=== PATIENT | male | born 2000 | race Caucasian/White ===

== ENCOUNTER 2018-12-20 09:39 | Emergency (ER) | payer MEDICAID, OTHER ==
[2018-12-20] MEDS ORDERED: TORAdol 30 mg Injection IM ONE (09:58)
[2018-12-20] MEDS ORDERED: Adacel Vial IM ONE ×2 (10:03)
[2018-12-20] MEDS ORDERED: TORAdol 30 mg Injection ONE (10:03)
--- NOTE | 2018-12-20 10:03 | ERPHSYRPT ---
- History of Present Illness Time Seen by Provider: 12/20/18 09:54 Source: patient Exam Limitations: no limitations Physician History: 18-year-old white male arrives with complaint of pain and swelling right hand since punching a garage door just prior to arrival. Patient states he became angry and punched a garage door . Past medical history includes migraines Past surgical history is negative. Social history positive marijuana Occurred: just prior to arrival Method of Injury: direct blow (punched a garage door) Severity of Pain-Max: moderate Severity of Pain-Current: moderate Extremities Pain Location: hand: right Modifying Factors: Improves With: nothing Associated Symptoms: none Allergies/Adverse Reactions: No Known Drug Allergies Allergy (Verified 03/25/16 03:04) Hx Tetanus, Diphtheria Vaccination/Date Given: No Hx Influenza Vaccination/Date Given: No Hx Pneumococcal Vaccination/Date Given: No - Review of Systems Constitutional: No Fever, No Chills Eyes: No Symptoms Ears, Nose, & Throat: No Symptoms Respiratory: No Cough, No Dyspnea Cardiac: No Chest Pain, No Edema, No Syncope Abdominal/Gastrointestinal: No Abdominal Pain, No Nausea, No Vomiting, No Diarrhea Genitourinary Symptoms: No Dysuria Musculoskeletal: Other (ppain and swelling right hand) Skin: No Rash Neurological: No Dizziness, No Focal Weakness, No Sensory Changes Psychological: No Symptoms Endocrine: No Symptoms - Past Medical History Pertinent Past Medical History: Yes Neurological History: Migraines ENT History: No Pertinent History Cardiac History: No Pertinent History Respiratory History: No Pertinent History Endocrine Medical History: No Pertinent History Musculoskeletal History: No Pertinent History GI Medical History: No Pertinent History History: No Pertinent History Psycho-Social History: Depression - Past Surgical History Past Surgical History: No Neuro Surgical History: No Pertinent History Cardiac: No Pertinent History Respiratory: No Pertinent History Gastrointestinal: No Pertinent History Genitourinary: No Pertinent History Musculoskeletal: No Pertinent History Male Surgical History: No Pertinent History - Social History Smoking Status: Current every day smoker How long have you smoked: 4 yrs Exposure to second hand smoke: Yes Drug Use: marijuana, methamphetamines Patient Lives Alone: No - Nursing Vital Signs Nursing Vital Signs: Initial Vital Signs Temperature 98 F 12/20/18 09:39 Pulse Rate 54 L 12/20/18 09:39 Respiratory Rate 18 12/20/18 09:39 Blood Pressure 130/74 12/20/18 09:39 O2 Sat by Pulse Oximetry 99 12/20/18 09:39 Pain Scale Pain Intensity 9 - Physical Exam General Appearance: mild distress, alert Eyes, Ears, Nose, Throat Exam: moist mucous membranes Neck Exam: non-tender, supple Cardiovascular/Respiratory Exam: chest non-tender, normal breath sounds, regular rate/rhythm, no respiratory distress Abdominal Exam: non-tender, No guarding Back Exam: normal inspection, No vertebral tenderness Shoulder Exam: normal inspection, non-tender, no evidence of injury, normal ROM Elbow/Forearm Exam: normal inspection, non-tender, no evidence of injury, normal ROM Wrist Exam: normal inspection, non-tender, no evidence of injury, normal ROM Hand Exam: normal ROM, No normal inspection (right hand with moderate edema and tenderness with palpation overlying dorsal fourth and fifth metacarpal), No non- tender, No no evidence of injury Neuro/Tendon Exam: normal sensation, normal motor functions Mental Status Exam: alert, oriented x 3, cooperative Skin Exam: normal color, warm, dry SpO2 Interpretation: normal (99%) - Course Nursing assessment & vital signs reviewed: Yes - Radiology Exams Right Hand X-ray Interpretation: Discussed w/ radiologist (x-ray right hand: Mildly displaced and angulated fractures iinvolving the shaft of the fourth and fifth metacarpals with soft tissue swelling. No other bony, articular, or soft tissue abnormalities.) Ordered Tests: Active Orders 24 hr Category Date Time Status Splint STAT Care 12/20/18 10:26 Active HAND (MINIMUM 3 VIEWS) Stat Exams 12/20/18 09:58 Taken Medication Summary Discontinued Medications Generic Name Dose Route Start Last Admin Trade Name Farzana PRN Reason Stop Dose Admin Diphtheria/Tetanus/Acell Pertussis 0.5 ml 12/20/18 10:03 12/20/18 10:11 Adacel Vial IM 12/20/18 10:04 0.5 ml .ONCE ONE Administration Diphtheria/Tetanus/Acell Pertussis Confirm 12/20/18 10:03 Adacel Vial Administered 12/20/18 10:04 Dose 0.5 ml IM .STK-MED ONE Ketorolac Tromethamine 60 mg 12/20/18 09:58 12/20/18 10:10 Toradol 30 Mg Injection IM 12/20/18 09:59 60 mg STAT ONE Administration Ketorolac Tromethamine Confirm 12/20/18 10:03 Toradol 30 Mg Injection Administered 12/20/18 10:04 Dose 60 mg .ROUTE .STK-MED ONE - Progress Progress: improved Progress Note: 12/20/18 10:33 Patient was displaced and angulated fractures involving the right fourth and fifth metacarpals. Patient with large overlying hematoma on the right dorsal hand he states that he apparently manipulated just prior to arrival. He does have good capillary refill to the right fingers sensation intact to the right fingers there is decreased range of motion right fingers secondary to pain. I've ordered an aluminum splint which replicates Carrillo-Leonid splint on the right hand. Contacted [facility] call and discuss the patient's case with Dr. Goetz, she has accepted the patient for transfer. Patient was given Toradol 60 mg IM, DTaP injection, he was given an ice bag placed to the area. Patient will transport himself to [facility]. . - Departure Departure Disposition: Transfer ([facility]) Clinical Impression: Metacarpal bone fracture Qualifiers: Encounter type: initial encounter Metacarpal bone: fourth Fracture type: closed Metacarpal location: shaft Fracture alignment: displaced Laterality: right Qualified Code(s): S62.324A - Displaced fracture of shaft of fourth metacarpal bone, right hand, initial encounter for closed fracture Contusion of right hand Qualifiers: Encounter type: initial encounter Qualified Code(s): S60.221A - Contusion of right hand, initial encounter Traumatic hematoma of right hand Qualifiers: Encounter type: initial encounter Qualified Code(s): S60.221A - Contusion of right hand, initial encounter Condition: Fair Critical Care Time: No Instructions: Hand Fracture (DC) Additional Instructions: Proceed directly to [facility] emergency room. Do not eat anything. Cold packs and elevate right hand.
--- NOTE | 2018-12-20 10:39 | XRAY ---
Indication: Pain following punching injury. Comparison: None 3 portable views of the right hand demonstrates mildly displaced and angulated fractures involving the shafts of the 4th/5th metacarpals with soft tissue swelling. No other bony, articular, or soft tissue abnormalities.
[2018-12-20 11:05] VITALS: BP 114/78; PULSE 99; O2SAT 100
== END 2018-12-20 11:13 | disposition home or self-care (01) ==
LOC: ED 09:39
DX: S62.324A Displaced fracture of shaft of fourth metacarpal bone, right hand, initial encounter for closed fracture (principal); S60.221A Contusion of right hand, initial encounter; W22.01XA Walked into wall, initial encounter
CPT/HCPCS: 73130; 90471; 90715; 96372; 99284; A4570; J1885

== ENCOUNTER 2024-07-29 09:11 | Emergency (ER) | payer OTHER ==
--- NOTE | 2024-07-29 09:15 | ERPHSYRPT ---
- History of Present Illness Time Seen by Provider: 07/29/24 09:15 Source: patient Exam Limitations: no limitations Physician History: This is a 24-year-old white male patient who arrives with right eye pain by private vehicle accompanied by family member. Patient was cleaning and an antenna poked his right eye approximately 8 PM on 07/28/2024. The patient had discomfort last night and throughout the evening and morning. He woke up today with right eye pain and redness of the right eye. Patient has history of migraine headache and depression. Patient is a daily smoker of cigarettes. Timing/Duration: yesterday Location: right eye Severity: moderate Apparent Injury: yes Associated Symptoms: pain, burning, sensitivity to light, redness, foreign body sensation Visual Assistive Devices: None Chemical Exposure: No Trauma: Yes Allergies/Adverse Reactions: No Known Drug Allergies Allergy (Verified 03/25/16 03:04) Hx Tetanus, Diphtheria Vaccination/Date Given: No Hx Influenza Vaccination/Date Given: No Hx Pneumococcal Vaccination/Date Given: No Travel Risk - International Travel Have you traveled outside of the country in past 3 weeks: No - Emerging Infectious Disease Are you exhibiting symptoms associated with any current EIDs: No - Review of Systems Constitutional: No Symptoms Eyes: Eye Pain (Right side), Eye Redness (Right side), Tearing, Vision Changes (Right side), Foreign Body Sensation (Right side) Ears, Nose, & Throat: No Symptoms Respiratory: No Symptoms Cardiac: No Symptoms Abdominal/Gastrointestinal: No Symptoms Genitourinary Symptoms: No Symptoms Musculoskeletal: No Symptoms Skin: No Symptoms Neurological: No Symptoms Psychological: No Symptoms Endocrine: No Symptoms Hematologic/Lymphatic: No Symptoms Immunological/Allergic: No Symptoms All Other Systems: Reviewed and Negative - Past Medical History Pertinent Past Medical History: Yes Neurological History: Migraines ENT History: No Pertinent History Cardiac History: No Pertinent History Respiratory History: No Pertinent History Endocrine Medical History: No Pertinent History Musculoskeletal History: No Pertinent History GI Medical History: No Pertinent History History: No Pertinent History Psycho-Social History: Depression - Past Surgical History Past Surgical History: No Neuro Surgical History: No Pertinent History Cardiac: No Pertinent History Respiratory: No Pertinent History Gastrointestinal: No Pertinent History Genitourinary: No Pertinent History Musculoskeletal: No Pertinent History Male Surgical History: No Pertinent History - Social History Smoking Status: Current every day smoker How long have you smoked: 4 yrs Exposure to second hand smoke: Yes Drug Use: marijuana, methamphetamines Patient Lives Alone: No - Nursing Vital Signs Nursing Vital Signs: Initial Vital Signs Temperature 97.2 F 07/29/24 09:25 Pulse Rate 64 07/29/24 09:25 Respiratory Rate 18 07/29/24 09:25 Blood Pressure 127/84 07/29/24 09:25 O2 Sat by Pulse Oximetry 100 07/29/24 09:25 Pain Scale Pain Intensity 6 - Physical Exam General Appearance: mild distress, alert, anxiety, thin Eye Exam: right eye: conjunctival inflammation, corneal abrasion (Obvious, gross curvilinear 11 to 1 o'clock position), left eye: normal inspection, bilateral eye: PERRL, EOMI Ears, Nose, Throat Exam: normal ENT inspection, moist mucous membranes Neck Exam: normal inspection, non-tender, supple, full range of motion Respiratory Exam: airway intact, No chest tenderness, No respiratory distress Gastrointestinal Exam: No tenderness Extremity Exam: normal inspection, normal range of motion, pelvis stable Neurologic: alert, oriented x 3, cooperative, gis software engineer II-XII nml as tested, normal mood/affect, nml cerebellar function, nml station & gait, sensation nml Skin Exam: normal color, warm, dry Lymphatic: No adenopathy SpO2 Interpretation: normal O2 Delivery: Room Air - Course Nursing assessment & vital signs reviewed: Yes Ordered Tests: Medication Summary Generic Name Dose Route Start Last Admin Trade Name Freq PRN Reason Stop Dose Admin Neomycin/Polymyxin/Hydrocortisone 7.5 ml 07/29/24 09:45 Neomy Sulf/Polymyx B Sulf/Hc 7.5 Ml Bottle OP 08/28/24 09:44 UD BIRDIE Discontinued Medications Generic Name Dose Route Start Last Admin Trade Name Freq PRN Reason Stop Dose Admin Hydrocodone Bitart/Acetaminophen 1 tab 07/29/24 09:32 Hydrocodone/Apap 5/325 1 Tab Tablet PO 07/29/24 09:33 STAT ONE Tetracaine HCl 4 ml 07/29/24 09:32 Tetracaine Hcl/Pf 4 Ml Bottle OP 07/29/24 09:33 STAT STA - Progress Progress: improved, pain not gone completely Progress Note: 07/29/24 09:41 My medical decision making of the assignment of low complexity of this patient's medical issue today is based on review of the patient's past medical history, reviewed the patient's medication list, reviewed patient drug allergy list, history present no send physical findings on examination. The workup of this patient includes gross examination and placement of tetracaine drops into right eye, hydrocodone/acetaminophen 5/325 1 tablet orally, 7.5 mL Cortisporin ophthalmologic solution 2 drops into right eye. We are in the process of securing an appointment with an extruder operator [facility] today, 07/29/2024 Differential diagnosis includes but is not limited to conjunctivitis, corneal abrasion Counseled pt/family regarding: diagnosis, need for follow-up Medical Desision Making - Independent Historian Additional History obtained from: Family - Risk of complications The pt has a mod risk of morbidity or mortality based on: Need for prescription drug management - Departure Departure Disposition: Home Clinical Impression: Right corneal abrasion, Conjunctivitis, right eye Condition: Stable Critical Care Time: No Referrals: DOCTOR,NO FAMILY [Primary Care Provider] - Follow up/PCP as directed Additional Instructions: Take your medications as prescribed. Follow-up with your extruder operator [facility] appointment today, 07/29/2024 for further evaluation management Prescriptions: Hydrocodone/APAP 5/325 [Harper 5/325 mg] 1 each PO HS #4 tablet MDD 1
[2024-07-29 09:29] VITALS: RESP 18; TEMP 97.2
[2024-07-29] MEDS ORDERED: TETRACAINE 0.5% STERI-UNIT SOL OP ONE (09:47)
[2024-07-29] MEDS ORDERED: Cortisporin Eye Drops OP ONE (09:47)
[2024-07-29] MEDS ORDERED: NORCO 5/325 MG ONE (09:47)
[2024-07-29] MEDS: Cortisporin Eye Drops OP SCH (09:48)
[2024-07-29] MEDS: TETRACAINE 0.5% STERI-UNIT SOL OP STA (09:48)
[2024-07-29] MEDS: NORCO 5/325 MG PO ONE (09:48)
[2024-07-29 10:08] VITALS: BP 128/87; PULSE 52; O2SAT 97
== END 2024-07-29 10:16 | disposition home or self-care (01) ==
LOC: ED 09:11
DX: S05.01XA Injury of conjunctiva and corneal abrasion without foreign body, right eye, initial encounter (principal); W22.8XXA Striking against or struck by other objects, initial encounter; Y93.E9 Activity, other interior property and clothing maintenance; H10.9 Unspecified conjunctivitis; Z79.891 Long term (current) use of opiate analgesic; Z72.0 Tobacco use
CPT/HCPCS: 99281; 99283; A9270-GY

== ENCOUNTER 2024-09-11 19:18 | Emergency (ER) | payer OTHER ==
[2024-09-11 20:02] VITALS: TEMP 98.2
[2024-09-11] MEDS ORDERED: Fluor-I-Strip/Ful-Flo OP ONE (20:20)
[2024-09-11] MEDS ORDERED: TETRACAINE 0.5% STERI-UNIT SOL OP ONE (20:20)
[2024-09-11] MEDS ORDERED: COLLYRIUM/ EYE RELIEF EYE WASH SOLUTION OP ONE (20:20)
[2024-09-11] MEDS: Fluor-I-Strip/Ful-Flo OP ONE (20:42)
[2024-09-11] MEDS: COLLYRIUM/ EYE RELIEF EYE WASH SOLUTION OP ONE (20:42)
[2024-09-11] MEDS: TETRACAINE 0.5% STERI-UNIT SOL OP STA (20:42)
[2024-09-11] MEDS ORDERED: Ocuflox OPHTHALMIC 5 ML OP ONE (20:43)
[2024-09-11] MEDS: Ocuflox OPHTHALMIC 5 ML OP SCH (20:44)
--- NOTE | 2024-09-11 20:45 | ERPHSYRPT ---
- History of Present Illness Time Seen by Provider: 09/11/24 19:21 Source: patient Exam Limitations: no limitations Patient Subjective Stated Complaint: c/o left eye injury Triage Nursing Assessment: patient brought into ED by grandfather with c/o left eye injury. patient was walking in shook and tripped over a root and fell into a tree limb. limb went right into his eye. patient had 20/70 vision in left eye and 20/50 vision in right eye. patient rates pain 5/10, conjunctiva reddened. vitals wnl, skin w/n/d, patient diesn't appear to be in any distress at this time, gait steady Physician History: 24 years old up-to-date with immunizations presented in the ER with complaint of left eye pain and redness with blurry vision after he accidentally stomped on his right stump and possibly something went into his right eye. He tried to take it out and still feel there is something inside. Reports blurry vision and tearing, painful movements in the front of the eye. Has conjunctival injection. No foreign body with everting lids. No embedded foreign body in the cornea seen. No hypopyon or globe rupture. Procedure note. Left eye tetracaine drops placed. Intact range of motion. Stained with fluorescein without uptake at 5 o'clock position with no foreign body and barely touching the pupillary area. I believe patient has corneal abrasion, given pain medication here and started on ofloxacin eyedrops. Patient is advised to follow-up outpatient with ophthalmology/optometry. Discussed signs symptoms of worsening needing return to ER which patient/family seem understanding. Stable for discharge. Allergies/Adverse Reactions: No Known Drug Allergies Allergy (Verified 09/11/24 19:51) Home Medications: Lamotrigine [Lamotrigine ER] 100 mg PO DAILY 09/11/24 [History] Sertraline HCl 50 mg [Zoloft 50 mg Tablet] 50 mg PO DAILY 09/11/24 [History] hydrOXYzine HCL [Hydroxyzine HCl] 10 mg PO DAILY 09/11/24 [History] Hx Tetanus, Diphtheria Vaccination/Date Given: No (unsure) Hx Influenza Vaccination/Date Given: No Hx Pneumococcal Vaccination/Date Given: No Travel Risk - International Travel Have you traveled outside of the country in past 3 weeks: No - Emerging Infectious Disease Are you exhibiting symptoms associated with any current EIDs: No - Review of Systems Constitutional: No Symptoms Eyes: Eye Redness, Itchy, Photophobia, Tearing, Vision Changes, Foreign Body Sensation Ears, Nose, & Throat: No Symptoms Respiratory: No Symptoms Cardiac: No Symptoms Abdominal/Gastrointestinal: No Symptoms Skin: No Symptoms Neurological: No Symptoms - Past Medical History Pertinent Past Medical History: Yes Neurological History: Migraines ENT History: No Pertinent History Cardiac History: No Pertinent History Respiratory History: No Pertinent History Endocrine Medical History: No Pertinent History Musculoskeletal History: Fractures GI Medical History: No Pertinent History History: No Pertinent History Psycho-Social History: Depression Other Medical History: right hand fracture - Past Surgical History Past Surgical History: Yes Neuro Surgical History: No Pertinent History Cardiac: No Pertinent History Respiratory: No Pertinent History Gastrointestinal: No Pertinent History Genitourinary: No Pertinent History Musculoskeletal: Orthopedic Surgery Male Surgical History: No Pertinent History Other Surgical History: right hand surgery - Social History Smoking Status: Current every day smoker How long have you smoked: 4 yrs Exposure to second hand smoke: Yes Drug Use: marijuana, methamphetamines - Social Determinants of Health Will the patient participate in the screening: Declined to provide - Nursing Vital Signs Nursing Vital Signs: Initial Vital Signs Temperature 98.2 F 09/11/24 19:53 Pulse Rate 61 09/11/24 19:53 Respiratory Rate 19 09/11/24 19:53 Blood Pressure 155/71 09/11/24 19:53 O2 Sat by Pulse Oximetry 100 09/11/24 19:53 Pain Scale Pain Intensity 5 - Physical Exam General Appearance: no apparent distress, alert Vision Acuity Degree Evaluation Phase: Uncorrected Vision Acuity Right Eye: 20/50 Vision Acuity Left Eye: 20/70 Eye Exam: right eye: normal inspection, left eye: conjunctival hemorrhage, conjunctival inflammation, corneal abrasion, bilateral eye: PERRL, EOMI Ears, Nose, Throat Exam: normal ENT inspection, pharynx normal, moist mucous membranes Neck Exam: normal inspection, non-tender, supple, full range of motion Respiratory Exam: normal breath sounds, lungs clear Cardiovascular Exam: regular rate/rhythm, normal heart sounds Neurologic: alert, oriented x 3, cooperative, wire tinner II-XII nml as tested Skin Exam: normal color SpO2 Interpretation: normal SpO2: 100 O2 Delivery: Room Air Ordered Tests: Medication Summary Generic Name Dose Route Start Last Admin Trade Name Freq PRN Reason Stop Dose Admin Ofloxacin 5 ml 09/12/24 08:00 Ofloxacin 0.3% Opth 5 Ml Eye Drops OP 10/12/24 07:59 [id number] BIRDIE Discontinued Medications Generic Name Dose Route Start Last Admin Trade Name Farzana PRN Reason Stop Dose Admin Fluorescein Sodium Confirm 09/11/24 20:20 Fluorescein Sodium 1 Mg/Strip Strip Administered 09/11/24 20:21 Dose 1 mg OP .STK-MED ONE Irrigating Solution Confirm 09/11/24 20:20 Sod Borate/Boric Ac/Water/Nacl 118 Ml Irrig.Soln Administered 09/11/24 20:21 Dose 118 ml OP .STK-MED ONE Tetracaine HCl Confirm 09/11/24 20:20 Tetracaine Hcl/Pf 4 Ml Bottle Administered 09/11/24 20:21 Dose 4 ml OP .STK-MED ONE - Progress Progress: improved, pain not gone completely Progress Note: 09/11/24 20:45 24 years old up-to-date with immunizations presented in the ER with complaint of left eye pain and redness with blurry vision after he accidentally stomped on his right stump and possibly something went into his right eye. He tried to take it out and still feel there is something inside. Reports blurry vision and tearing, painful movements in the front of the eye. Has conjunctival injection. No foreign body with everting lids. No embedded foreign body in the cornea seen. No hypopyon or globe rupture. Procedure note. Left eye tetracaine drops placed. Intact range of motion. Stained with fluorescein without uptake at 5 o'clock position with no foreign body and barely touching the pupillary area. I believe patient has corneal abrasion, given pain medication here and started on ofloxacin eyedrops. Patient is advised to follow-up outpatient with ophthalmology/optometry. Discussed signs symptoms of worsening needing return to ER which patient/family seem understanding. Stable for discharge. Counseled pt/family regarding: diagnosis, need for follow-up Medical Desision Making - Independent Historian Additional History obtained from: Relative/friend - Risk of complications The pt has a mod risk of morbidity or mortality based on: Need for prescription drug management - Departure Departure Disposition: Home Clinical Impression: Corneal abrasion, left Condition: Stable Critical Care Time: No Referrals: DOCTOR,NO FAMILY [Primary Care Provider, UNKNOWN] - Follow up/PCP as directed Instructions: Corneal Abrasion ED Additional Instructions: Use 1 to 2 eyedrops every 4-6 hours while awake for the next 5 to 7 days. Follow-up with optometry/ophthalmology for reevaluation in the morning. Take Tylenol/ibuprofen as needed. Return to ER for intractable pain, eye discharge, vision changes etc.
[2024-09-11] MEDS ORDERED: NORCO 5/325 MG ONE (20:48)
[2024-09-11] MEDS: NORCO 5/325 MG PO ONE ×2 (20:48)
[2024-09-11 21:01] VITALS: BP 151/83; PULSE 48; RESP 17; O2SAT 99
== END 2024-09-11 21:01 | disposition home or self-care (01) ==
LOC: ED 19:18
DX: S05.02XA Injury of conjunctiva and corneal abrasion without foreign body, left eye, initial encounter (principal); W01.198A Fall on same level from slipping, tripping and stumbling with subsequent striking against other object, initial encounter; Y93.01 Activity, walking, marching and hiking; Y92.828 Other wilderness area as the place of occurrence of the external cause; H57.12 Ocular pain, left eye; Z79.899 Other long term (current) drug therapy; Z72.0 Tobacco use
CPT/HCPCS: 99281; 99284; A9270-GY